=== PATIENT | female | born 1960 | race Hispanic/Latino ===

== ENCOUNTER 2019-05-31 13:20 | Inpatient (IN) | payer MEDICARE, OTHER ==
[2019-05-30] MEDS: NITROGLYCERIN/D5W 200 MCG/ML 250 ML IV PRN (22:42)
[2019-05-31] VITALS (21 sets, daily range): BP systolic 113–214; BP diastolic 75–127
[~2019-05-31] VITALS: Ht 157.5 cm; Wt 67.2 kg
--- OUTSIDE RECORDS SUMMARY | 2019-05-31 13:23 | XMS REPORT ---
[facility] Address Unknown Phone Unavailable Care Team Providers Care Sql Consultant Name Role Phone Favian FALK Unavailable Unavailable DERIC PERALTA Unavailable Unavailable Payers Payer Name Policy Type Policy Number Effective Date Expiration Date Problems This patient has no known problems. Allergies, Adverse Reactions, Alerts Allergy Name Allergy Type Status Severity Reaction(s) Onset Date Inactive Date Treating Clinician Comments No Known Allergies DA Active U 2018-06-30 00:00:00 No Known Allergies DA Active U 2018-05-16 00:00:00 No Known Allergies DA Active U 2011-11-16 00:00:00 Medications This patient has no known medications. Results Test Description Test Time Test Comments Text Results Atomic Results Result Comments FUNGUS CULTURE + SMEAR 2018-06-16 07:11:00 CULTURE (BEAKER) (test jwol=6648) No fungus isolated in 28 days FUNGUS SMEAR (BEAKER) (test vxhf=7524) No fungi seen MISCELLANEOUS LAB [id number] 12:55:00* Test Item Value Reference Range Comments SCAN RESULT (test weig=6021090) BLOOD [id number] 00:00:00* Test Item Value Reference Range Comments CULTURE (BEAKER) (test cryh=9066) No growth in 5 days BLOOD [id number] 18:00:00* Test Item Value Reference Range Comments CULTURE (BEAKER) (test cswx=0698) No growth in 5 days PERITONEAL DIALYSIS EFFLUENT [id number] 09:50:00* Test Item Value Reference Range Comments CULTURE (BEAKER) (test qsea=7788) No growth GRAM STAIN RESULT (BEAKER) (test wohm=5541) 4+ WBCs GRAM STAIN RESULT (BEAKER) (test vezw=60418) No organisms seen POCT-GLUCOSE [id number] 12:06:00* Test Item Value Reference Range Comments POC-GLUCOSE METER (BEAKER) (test pmja=2447) 200 mg/dL 70-[address] [facility] [address] [facility] [address] POCT-GLUCOSE [id number] 09:00:00* Test Item Value Reference Range Comments POC-GLUCOSE METER (BEAKER) (test qshy=7544) 177 mg/dL 70-110 TESTED AT [address] [address] BASIC METABOLIC [id number] 06:46:00* Test Item Value Reference Range Comments SODIUM (BEAKER) (test fbwo=248) 137 meq/L 136-145 POTASSIUM (BEAKER) (test jzkf=569) 3.2 meq/L 3.5-5.1 CHLORIDE (BEAKER) (test afvm=729) 103 meq/L 98-107 CO2 (BEAKER) (test acps=285) 25 meq/L 22-29 BLOOD UREA NITROGEN (BEAKER) (test fhmi=228) 33 mg/dL 7-21 CREATININE (BEAKER) (test lphk=645) 6.44 mg/dL 0.57-1.25 GLUCOSE RANDOM (BEAKER) (test sgfn=825) 188 mg/dL 70-105 CALCIUM (BEAKER) (test pwjy=997) 8.4 mg/dL 8.4-10.2 EGFR (BEAKER) (test pcou=9693) 7 mL/min/1.73 sq m ESTIMATED GFR IS NOT ACCURATE CREATININE CLEARANCE IN PREDICTING GLOMERULAR FILTRATION RATE. ESTIMATED GFR IS NOT APPLICABLE FOR DIALYSIS PATIENTS. CBC (HEMOGRAM ONLY)2018-05-20 06:08:00* Test Item Value Reference Range Comments WHITE BLOOD CELL COUNT (BEAKER) (test beoi=893) 6.7 K/ L 3.5-10.5 RED BLOOD CELL COUNT (BEAKER) (test lkck=529) 2.97 M/ L 3.93-5.22 HEMOGLOBIN (BEAKER) (test ufse=165) 8.8 GM/DL 11.2-15.7 HEMATOCRIT (BEAKER) (test rpoz=138) 26.7 % 34.1-44.9 MEAN CORPUSCULAR VOLUME (BEAKER) (test ufkv=556) 89.9 fL 79.4-94.8 MEAN CORPUSCULAR HEMOGLOBIN (BEAKER) (test jlvf=995) 29.6 pg 25.6-32.2 MEAN CORPUSCULAR HEMOGLOBIN CONC (BEAKER) (test bwls=347) 33.0 GM/DL 32.2-35.5 RED CELL DISTRIBUTION WIDTH (BEAKER) (test zbhf=094) 13.2 % 11.7-14.4 PLATELET COUNT (BEAKER) (test yokb=241) 206 K/CU MM 150-450 MEAN PLATELET VOLUME (BEAKER) (test fdng=396) 10.5 fL 9.4-12.3 NUCLEATED RED BLOOD CELLS (BEAKER) (test ixft=221) 0 /100 WBC 0-0 POCT-GLUCOSE [id number] 21:26:00* Test Item Value Reference Range Comments POC-GLUCOSE METER (BEAKER) (test rkvl=8661) 259 mg/dL 70-[address] [facility] [address] [facility] [address] BODY FLUID CELL COUNT WITH [id number] 20:14:00* Test Item Value Reference Range Comments APPEARANCE FLUID (BEAKER) (test waeb=629) Cloudy Clear COLOR FLUID (BEAKER) (test ynvn=761) Straw Colorless, Straw RBC FLUID (BEAKER) (test hmoq=629) 70 /cu mm <=1 ADJUSTED WBC FLUID (BEAKER) (test uwyp=0892) 5455 /cu mm <=5 LINING CELLS (BEAKER) (test arkg=1227) 55 /cu mm <=1 NEUTROPHILS FLUID (BEAKER) (test jyrl=4604) 73 % LYMPHS FLUID (BEAKER) (test ygdp=298) 9 % MONO/MACROPHAGE FLUID (BEAKER) (test ixjv=131) 13 % EOSINOPHILS FLUID (BEAKER) (test brti=795) 3 % BASO FLUID (BEAKER) (test yziu=719) 2 % CONTAINER BODY FLUID (BEAKER) (test fkhs=4621) EDTA Tube POCT-GLUCOSE [id number] 17:54:00* Test Item Value Reference Range Comments POC-GLUCOSE METER (BEAKER) (test xrha=3986) 140 mg/dL 70-[address] [facility] [address] [facility] [address] POCT-GLUCOSE [id number] 11:31:00* Test Item Value Reference Range Comments POC-GLUCOSE METER (WeatheristaAKER) (test agys=4879) 66 mg/dL 70-[address] [facility] [address] [facility] [address] PERITONEAL DIALYSIS EFFLUENT [id number] 10:19:00* Test Item Value Reference Range Comments CULTURE (WeatheristaAKER) (test vssi=9193) ACINETOBACTER BAUMANNII COMPLEX 4+ Acinetobacter baumannii complex Amikacin (test code=1) Susceptible 0-16 , Resistant <0 or >16 Ampicillin + Sulbactam (test code=6) Susceptible 0-8 , Resistant <0 or >8 Cefepime (test code=51) Susceptible 0-8 , Resistant <0 or >8 Ceftazidime (test code=27) Susceptible 0-8 , Resistant <0 or >8 Ceftriaxone (test code=52) Susceptible 0-8 , Resistant <0 or >8 Ciprofloxacin (test code=7) Susceptible 0-1 , Resistant <0 or >1 Gentamicin (test code=18) Susceptible 0-4 , Resistant <0 or >4 Levofloxacin (test code=22) Susceptible 0-2 , Resistant <0 or >2 Meropenem (test code=34) Susceptible 0-2 , Resistant <0 or >2 Minocycline (test code=35) Susceptible 0-4 , Resistant <0 or >4 Piperacillin (test code=24) Susceptible 0-16 , Resistant <0 or >16 Piperacillin + Tazobactam (test code=29) Susceptible 0-16 , Resistant <0 or >16 Tetracycline (test code=2) Susceptible 0-4 , Resistant <0 or >4 Ticarcillin + Clavulanic Acid (test code=80) Susceptible 0-16 , Resistant <0 or >16 Tobramycin (test code=25) Susceptible 0-4 , Resistant <0 or >4 Trimethoprim + Sulfamethoxazole (test code=47) Susceptible 0-40 , Resistant <0 or >40 GRAM STAIN RESULT (WeatheristaAKER) (test kvxa=7413) 4+ WBCs GRAM STAIN RESULT (WeatheristaAKER) (test ztsn=443547) No organisms seen POCT-GLUCOSE [id number] 08:13:00* Test Item Value Reference Range Comments POC-GLUCOSE METER (BEAKER) (test rstp=2102) 180 mg/dL 70-[address] [facility] [address] [facility] [address] BASIC METABOLIC [id number] 06:14:00* Test Item Value Reference Range Comments SODIUM (BEAKER) (test hphf=796) 134 meq/L 136-145 POTASSIUM (BEAKER) (test uqfo=982) 3.1 meq/L 3.5-5.1 CHLORIDE (BEAKER) (test qfvv=284) 100 meq/L 98-107 CO2 (BEAKER) (test wwcg=028) 24 meq/L 22-29 BLOOD UREA NITROGEN (BEAKER) (test pcqk=679) 42 mg/dL 7-21 CREATININE (BEAKER) (test iynv=151) 7.38 mg/dL 0.57-1.25 GLUCOSE RANDOM (BEAKER) (test bpnq=600) 224 mg/dL 70-105 CALCIUM (BEAKER) (test ttle=945) 8.7 mg/dL 8.4-10.2 EGFR (BEAKER) (test rsyc=3854) 6 mL/min/1.73 sq m ESTIMATED GFR IS NOT ACCURATE CREATININE CLEARANCE IN PREDICTING GLOMERULAR FILTRATION RATE. ESTIMATED GFR IS NOT APPLICABLE FOR DIALYSIS PATIENTS. CBC (HEMOGRAM ONLY)2018-05-19 05:51:00* Test Item Value Reference Range Comments WHITE BLOOD CELL COUNT (BEAKER) (test eabg=061) 10.4 K/ L 3.5-10.5 RED BLOOD CELL COUNT (BEAKER) (test wdfw=382) 3.00 M/ L 3.93-5.22 HEMOGLOBIN (BEAKER) (test oxvz=577) 9.0 GM/DL 11.2-15.7 HEMATOCRIT (BEAKER) (test xjkv=338) 27.0 % 34.1-44.9 MEAN CORPUSCULAR VOLUME (BEAKER) (test hhkj=580) 90.0 fL 79.4-94.8 MEAN CORPUSCULAR HEMOGLOBIN (BEAKER) (test unbk=764) 30.0 pg 25.6-32.2 MEAN CORPUSCULAR HEMOGLOBIN CONC (BEAKER) (test jxok=429) 33.3 GM/DL 32.2-35.5 RED CELL DISTRIBUTION WIDTH (BEAKER) (test acim=782) 13.2 % 11.7-14.4 PLATELET COUNT (BEAKER) (test xpqt=413) 192 K/CU MM 150-450 MEAN PLATELET VOLUME (BEAKER) (test ptqr=604) 11.2 fL 9.4-12.3 NUCLEATED RED BLOOD CELLS (BEAKER) (test xolo=771) 0 /100 WBC 0-0 BODY FLUID CELL COUNT WITH [id number] 21:31:00* Test Item Value Reference Range Comments APPEARANCE FLUID (BEAKER) (test gmgr=275) Cloudy Clear COLOR FLUID (BEAKER) (test mrfm=383) Yellow Colorless, Straw RBC FLUID (BEAKER) (test yeep=242) 123 /cu mm <=1 ADJUSTED WBC FLUID (BEAKER) (test mvzz=8648) [address] /cu mm <=5 LINING CELLS (BEAKER) (test iius=8899) 0 /cu mm <=1 NEUTROPHILS FLUID (BEAKER) (test bigy=7730) 80 % LYMPHS FLUID (BEAKER) (test zyen=614) 4 % MONO/MACROPHAGE FLUID (BEAKER) (test oiei=505) 14 % EOSINOPHILS FLUID (BEAKER) (test uhvh=682) 1 % BASO FLUID (BEAKER) (test ouid=182) 1 % CONTAINER BODY FLUID (BEAKER) (test wtcq=1044) EDTA Tube POCT-GLUCOSE [id number] 17:54:00* Test Item Value Reference Range Comments POC-GLUCOSE METER (BEAKER) (test evlc=0330) 116 mg/dL 70-110 TESTED AT [address] [address] POCT-GLUCOSE [id number] 12:00:00* Test Item Value Reference Range Comments POC-GLUCOSE METER (BEAKER) (test vihg=9078) 109 mg/dL 70-110 TESTED AT [address] [address] POCT-GLUCOSE [id number] 08:10:00* Test Item Value Reference Range Comments POC-GLUCOSE METER (BEAKER) (test bwzm=8742) 124 mg/dL 70-110 TESTED AT [address] [address] BASIC METABOLIC [id number] 06:00:00* Test Item Value Reference Range Comments SODIUM (BEAKER) (test hcpx=318) 134 meq/L 136-145 POTASSIUM (BEAKER) (test ibwe=960) 3.2 meq/L 3.5-5.1 CHLORIDE (BEAKER) (test rmdd=661) 99 meq/L 98-107 CO2 (BEAKER) (test zpaz=167) 25 meq/L 22-29 BLOOD UREA NITROGEN (BEAKER) (test ndvf=445) 51 mg/dL 7-21 CREATININE (BEAKER) (test nrhq=016) 8.66 mg/dL 0.57-1.25 GLUCOSE RANDOM (BEAKER) (test ighb=291) 140 mg/dL 70-105 CALCIUM (BEAKER) (test hlex=955) 8.7 mg/dL 8.4-10.2 EGFR (BEAKER) (test aqbj=5783) 5 mL/min/1.73 sq m ESTIMATED GFR IS NOT ACCURATE CREATININE CLEARANCE IN PREDICTING GLOMERULAR FILTRATION RATE. ESTIMATED GFR IS NOT APPLICABLE FOR DIALYSIS PATIENTS. VANCOMYCIN LEVEL, [id number] 05:57:00* Test Item Value Reference Range Comments VANCOMYCIN RANDOM (BEAKER) (test mqgh=331) 39.9 ug/mL Reference Range: No NormalsCBC (HEMOGRAM ONLY)2018-05-18 05:34:00* Test Item Value Reference Range Comments WHITE BLOOD CELL COUNT (BEAKER) (test xjih=037) 14.6 K/ L 3.5-10.5 RED BLOOD CELL COUNT (BEAKER) (test qkiw=568) 3.10 M/ L 3.93-5.22 HEMOGLOBIN (BEAKER) (test owrl=817) 9.3 GM/DL 11.2-15.7 HEMATOCRIT (BEAKER) (test vehg=180) 27.9 % 34.1-44.9 MEAN CORPUSCULAR VOLUME (BEAKER) (test ioel=635) 90.0 fL 79.4-94.8 MEAN CORPUSCULAR HEMOGLOBIN (BEAKER) (test chmy=069) 30.0 pg 25.6-32.2 MEAN CORPUSCULAR HEMOGLOBIN CONC (BEAKER) (test ezyr=430) 33.3 GM/DL 32.2-35.5 RED CELL DISTRIBUTION WIDTH (BEAKER) (test yizh=162) 13.3 % 11.7-14.4 PLATELET COUNT (BEAKER) (test xuwn=965) 150 K/CU MM 150-450 MEAN PLATELET VOLUME (BEAKER) (test hnmr=219) 11.2 fL 9.4-12.3 NUCLEATED RED BLOOD CELLS (BEAKER) (test pbla=102) 0 /100 WBC 0-0 POCT-GLUCOSE [id number] 21:25:00* Test Item Value Reference Range Comments POC-GLUCOSE METER (BEAKER) (test rxps=6834) 228 mg/dL 70-110 TESTED AT [address] [address] POCT-GLUCOSE [id number] 17:09:00* Test Item Value Reference Range Comments POC-GLUCOSE METER (BEAKER) (test qawl=3243) 99 mg/dL 70-110 TESTED AT [address] [address] POCT-GLUCOSE [id number] 11:55:00* Test Item Value Reference Range Comments POC-GLUCOSE METER (BEAKER) (test ulds=7274) 92 mg/dL 70-110 TESTED AT [address] [address] HEMOGLOBIN [id number] 11:09:00* Test Item Value Reference Range Comments HEMOGLOBIN A1C (BEAKER) (test cvyc=562) 6.0 % 4.3-6.1 POCT-GLUCOSE [id number] 09:09:00* Test Item Value Reference Range Comments POC-GLUCOSE METER (BEAKER) (test rzkq=8927) 87 mg/dL 70-110 TESTED AT [address] [address] POCT-GLUCOSE [id number] 07:39:00* Test Item Value Reference Range Comments POC-GLUCOSE METER (BEAKER) (test isqu=3297) 64 mg/dL 70-110 Notified HELGA LEBRON/TESTED AT [address] [address] BASIC METABOLIC [id number] 06:41:00* Test Item Value Reference Range Comments SODIUM (BEAKER) (test xtmq=626) 133 meq/L 136-145 POTASSIUM (BEAKER) (test mfxx=121) 3.9 meq/L 3.5-5.1 CHLORIDE (BEAKER) (test xcej=302) 102 meq/L 98-107 CO2 (BEAKER) (test woig=740) 19 meq/L 22-29 BLOOD UREA NITROGEN (BEAKER) (test bztj=419) 60 mg/dL 7-21 CREATININE (BEAKER) (test fdhk=221) 10.48 mg/dL 0.57-1.25 GLUCOSE RANDOM (BEAKER) (test cuhk=387) 68 mg/dL 70-105 CALCIUM (BEAKER) (test qzcy=491) 7.7 mg/dL 8.4-10.2 EGFR (BEAKER) (test aelc=1386) 4 mL/min/1.73 sq m ESTIMATED GFR IS NOT ACCURATE CREATININE CLEARANCE IN PREDICTING GLOMERULAR FILTRATION RATE. ESTIMATED GFR IS NOT APPLICABLE FOR DIALYSIS PATIENTS. VANCOMYCIN LEVEL, [id number] 06:32:00* Test Item Value Reference Range Comments VANCOMYCIN RANDOM (BEAKER) (test tyvn=014) 12.3 ug/mL Reference Range: No NormalsPOCT-GLUCOSE [id number] 00:58:00* Test Item Value Reference Range Comments POC-GLUCOSE METER (BEAKER) (test pxus=9720) 85 mg/dL 70-110 TESTED AT [address] [address] POCT-GLUCOSE [id number] 00:19:00* Test Item Value Reference Range Comments POC-GLUCOSE METER (BEAKER) (test qvcc=5567) 64 mg/dL 70-110 Notified HELGA LEBRON/TESTED AT [address] [address] BODY FLUID CELL COUNT WITH [id number] 21:12:00* Test Item Value Reference Range Comments APPEARANCE FLUID (BEAKER) (test mrfh=080) Cloudy Clear COLOR FLUID (BEAKER) (test jpba=888) Straw Colorless, Straw RBC FLUID (BEAKER) (test izji=605) 130 /cu mm <=1 ADJUSTED WBC FLUID (BEAKER) (test shlq=1646) 7518 /cu mm <=5 LINING CELLS (BEAKER) (test khxi=1396) 0 /cu mm <=1 NEUTROPHILS FLUID (BEAKER) (test sgbq=5299) 86 % LYMPHS FLUID (BEAKER) (test nlxu=911) 5 % MONO/MACROPHAGE FLUID (BEAKER) (test awgj=258) 9 % EOSINOPHILS FLUID (BEAKER) (test fyag=532) 0 % BASO FLUID (BEAKER) (test gwiz=990) 0 % CONTAINER BODY FLUID (BEAKER) (test zxkh=6077) EDTA Tube BODY FLUID CELL COUNT WITH [id number] 17:46:00* Test Item Value Reference Range Comments APPEARANCE FLUID (BEAKER) (test zcwr=417) Cloudy Clear COLOR FLUID (BEAKER) (test peli=847) Colorless Colorless, Straw RBC FLUID (BEAKER) (test dkxb=623) 100 /cu mm <=1 ADJUSTED WBC FLUID (BEAKER) (test lbmd=5038) [address] /cu mm <=5 LINING CELLS (BEAKER) (test jbuq=8228) 0 /cu mm <=1 NEUTROPHILS FLUID (BEAKER) (test uysf=3049) 90 % LYMPHS FLUID (BEAKER) (test bgur=879) 1 % MONO/MACROPHAGE FLUID (BEAKER) (test gajy=418) 9 % EOSINOPHILS FLUID (BEAKER) (test soyw=249) 0 % BASO FLUID (BEAKER) (test otmn=702) 0 % CONTAINER BODY FLUID (BEAKER) (test bfxm=1637) EDTA Tube AMYLASE, BODY [id number] 16:36:00* Test Item Value Reference Range Comments AMYLASE FLUID (BEAKER) (test jvyy=570) 5 U/L Absence of reference range indicates that normals have not been defined.Assay pe rformance has not been validated for this type of specimen.BASIC METABOLIC PANEL 2018-05-16 15:47:00* Test Item Value Reference Range Comments SODIUM (BEAKER) (test hfxn=086) 132 meq/L 136-145 POTASSIUM (BEAKER) (test yoxe=148) 3.7 meq/L 3.5-5.1 CHLORIDE (BEAKER) (test zdbk=719) 99 meq/L 98-107 CO2 (BEAKER) (test kzcy=982) 20 meq/L 22-29 BLOOD UREA NITROGEN (BEAKER) (test cwrj=231) 55 mg/dL 7-21 CREATININE (BEAKER) (test vlhe=081) 10.28 mg/dL 0.57-1.25 GLUCOSE RANDOM (BEAKER) (test gams=065) 70 mg/dL 70-105 CALCIUM (BEAKER) (test tgeq=955) 8.1 mg/dL 8.4-10.2 EGFR (BEAKER) (test ajiz=6399) 4 mL/min/1.73 sq m ESTIMATED GFR IS NOT ACCURATE CREATININE CLEARANCE IN PREDICTING GLOMERULAR FILTRATION RATE. ESTIMATED GFR IS NOT APPLICABLE FOR DIALYSIS PATIENTS. PROTHROMBIN [id number] 15:45:00* Test Item Value Reference Range Comments PROTIME (BEAKER) (test rmhn=717) 16.1 seconds 11.7-14.7 INR (BEAKER) (test sois=821) 1.3 <=5.9 RECOMMENDED COUMADIN/WARFARIN INR THERAPY RANGESSTANDARD DOSE: 2.0 - 3.0 Inclu ammy: PROPHYLAXIS for venous thrombosis, systemic embolization; TREATMENT for grey ous thrombosis and/or pulmonary embolus.HIGH RISK: Target INR is 2.5-3.5 for pat ients with mechanical heart valves.CBC W/PLT COUNT & AUTO [id number] 15:40:00* Test Item Value Reference Range Comments WHITE BLOOD CELL COUNT (BEAKER) (test dkpq=093) 16.4 K/ L 3.5-10.5 RED BLOOD CELL COUNT (BEAKER) (test adur=756) 3.75 M/ L 3.93-5.22 HEMOGLOBIN (BEAKER) (test zuhp=600) 11.3 GM/DL 11.2-15.7 HEMATOCRIT (BEAKER) (test azeu=241) 33.5 % 34.1-44.9 MEAN CORPUSCULAR VOLUME (BEAKER) (test wkkd=564) 89.3 fL 79.4-94.8 MEAN CORPUSCULAR HEMOGLOBIN (BEAKER) (test yvkx=516) 30.1 pg 25.6-32.2 MEAN CORPUSCULAR HEMOGLOBIN CONC (BEAKER) (test zvcm=905) 33.7 GM/DL 32.2-35.5 RED CELL DISTRIBUTION WIDTH (BEAKER) (test bmlm=358) 13.2 % 11.7-14.4 PLATELET COUNT (BEAKER) (test jmoz=744) 184 K/CU MM 150-450 MEAN PLATELET VOLUME (BEAKER) (test hnqp=497) 10.9 fL 9.4-12.3 NUCLEATED RED BLOOD CELLS (BEAKER) (test zkid=089) 0 /100 WBC 0-0 NEUTROPHILS RELATIVE PERCENT (BEAKER) (test pqwg=590) 91 % LYMPHOCYTES RELATIVE PERCENT (BEAKER) (test aecr=854) 7 % MONOCYTES RELATIVE PERCENT (BEAKER) (test dckp=010) 1 % EOSINOPHILS RELATIVE PERCENT (BEAKER) (test nsqy=229) 0 % BASOPHILS RELATIVE PERCENT (BEAKER) (test sues=776) 0 % NEUTROPHILS ABSOLUTE COUNT (BEAKER) (test eqbc=098) 14.91 K/ L 1.56-6.13 LYMPHOCYTES ABSOLUTE COUNT (BEAKER) (test xllo=525) 1.17 K/ L 1.18-3.74 MONOCYTES ABSOLUTE COUNT (BEAKER) (test mbir=936) 0.18 K/ L 0.24-0.36 EOSINOPHILS ABSOLUTE COUNT (BEAKER) (test dhwm=985) 0.02 K/ L 0.04-0.36 BASOPHILS ABSOLUTE COUNT (BEAKER) (test ighd=319) 0.02 K/ L 0.01-0.08 IMMATURE GRANULOCYTES-RELATIVE PERCENT (BEAKER) (test qbkn=1240) 0 % 0-1 [id number] 06:56:00* Test Item Value Reference Range Comments POC-SODIUM (BEAKER) (test sxzu=5177) 139 meq/L 135-148 TESTED AT [place] [address] [id number] 06:56:00* Test Item Value Reference Range Comments POC-POTASSIUM (BEAKER) (test wjrw=6411) 3.9 meq/L 3.6-5.5 TESTED AT [place] [address] [id number] 06:56:00* Test Item Value Reference Range Comments POC-BUN (BEAKER) (test qrwk=9907) 52 mg/dL 7-21 TESTED AT [place] [address] [id number] 06:56:00* Test Item Value Reference Range Comments POC-CHLORIDE (BEAKER) (test jkza=3603) 105 meq/L 98-107 TESTED AT [place] [id number] 06:56:00* Test Item Value Reference Range Comments POC-GLUCOSE (BEAKER) (test jpzi=1700) 122 mg/dL 70-110 TESTED AT [place] [address] [id number] 06:56:00* Test Item Value Reference Range Comments POC-HEMATOCRIT (BEAKER) (test byyj=8744) 30 % 36-45 TESTED AT [place] [address] [id number] 06:56:00* Test Item Value Reference Range Comments POC-HEMOGLOBIN (BEAKER) (test ieeb=6131) 10.2 g/dL 12.0-15.0 TESTED AT [place] [address] [id number] 07:05:00* Test Item Value Reference Range Comments POC-SODIUM (BEAKER) (test uhgh=1714) 139 meq/L 135-148 TESTED AT [place] [address] [id number] 07:05:00* Test Item Value Reference Range Comments POC-POTASSIUM (BEAKER) (test dtkx=9331) 4.3 meq/L 3.6-5.5 TESTED AT [place] [address] [id number] 07:05:00* Test Item Value Reference Range Comments POC-BUN (BEAKER) (test tzaw=4925) 55 mg/dL 7-21 TESTED AT [place] [address] [id number] 07:05:00* Test Item Value Reference Range Comments POC-CHLORIDE (BEAKER) (test oxzu=6654) 103 meq/L 98-107 TESTED AT [place] [address] [id number] 07:05:00* Test Item Value Reference Range Comments POC-GLUCOSE (BEAKER) (test yktq=1076) 124 mg/dL 70-110 TESTED AT [place] [address] [id number] 07:05:00* Test Item Value Reference Range Comments POC-HEMATOCRIT (BEAKER) (test otwf=2141) 36 % 36-45 TESTED AT [place] [address] [id number] 07:05:00* Test Item Value Reference Range Comments POC-HEMOGLOBIN (BEAKER) (test lydp=3840) 12.2 g/dL 12.0-15.[address] [facility] [place] [address] [facility] [id number]
[2019-05-31] MEDS ORDERED: HYDRALAZINE HCL 20 MG/ML VIAL IV ONE ×2 (13:45→14:30)
[2019-05-31] MEDS ORDERED: FUROSEMIDE INJ 10 MG/ML 4 ML VIAL IV NR (14:30)
[2019-05-31] MEDS ORDERED: FUROSEMIDE INJ 10 MG/ML 4 ML VIAL ONE (14:34)
[2019-05-31] MEDS ORDERED: NITROGLYCERIN 2% OINT 1 GM PKT ONE (14:35)
[2019-05-31] MEDS ORDERED: ASPIRIN 81 MG CHEW TAB PO ONE (14:45)
[2019-05-31] MEDS ORDERED: ONDANSETRON HCL INJ 2MG/ML 2ML 2 MG/ML VIAL IV PRN ×2 (14:45→15:45)
[2019-05-31] MEDS ORDERED: SODIUM CHLORIDE FLUSH 10 ML SYR INJ PRN (14:45)
[2019-05-31] MEDS ORDERED: HYDRALAZINE HCL 20 MG/ML VIAL IV PRN (14:45)
[2019-05-31] MEDS ORDERED: MORPHINE SULFATE 2 MG/ML SYR 1ML IV PRN (14:45)
--- NOTE | 2019-05-31 14:46 | Diagnostic Imaging Report ---
Frontal and lateral views of the chest. HISTORY: Shortness of breath COMPARISON: None available. DISCUSSION: Soft tissue attenuation partially limits sensitivity of the exam. Overlying artifacts. Lungs and pleura: Low lung volumes result in bibasilar vascular crowding, accentuation of the pulmonary interstitial markings, central pulmonary vasculature, and the cardiac silhouette. Allowing for these limitations, the findings are as follows: Small left greater than right pleural effusions with adjacent atelectasis. Diffusely increased pulmonary tissue markings. Heart and mediastinum: The cardiac silhouette and central pulmonary vasculature appear(s) enlarged. Bones and soft tissues: Appear unremarkable. IMPRESSION: Findings compatible with volume overload resulting in central pulmonary vascular congestion, interstitial edema, left greater than right pleural effusions, and adjacent atelectasis. Signed by: Dr. Ethan Giang D.O., M.M.M. on 05/31/2019 2:43 PM
[2019-05-31] MEDS ORDERED: ONDANSETRON HCL INJ 2MG/ML 2ML 2 MG/ML VIAL IV STA (15:38)
[2019-05-31] MEDS ORDERED: ACETAMINOPHEN 325 MG TAB PO PRN (16:00)
[2019-05-31] MEDS ORDERED: DOCUSATE SODIUM 100 MG CAP PO PRN (16:00)
[2019-05-31] MEDS ORDERED: MORPHINE SULFATE INJ 4 MG/ML INJ 1ML IV PRN (16:00)
[2019-05-31] MEDS ORDERED: CEFTRIAXONE SOD 1 GM/NS 50 ML 50 ML IV ONE ×2 (16:00→16:23)
[2019-05-31] MEDS ORDERED: ONDANSETRON HCL INJ 2MG/ML 2ML 2 MG/ML VIAL ONE (16:22)
[2019-05-31] MEDS ORDERED: NITROGLYCERIN/D5W 200 MCG/ML 250 ML ONE (16:23)
[2019-05-31] MEDS: FUROSEMIDE INJ 10 MG/ML 4 ML VIAL IV SCH ×2 (16:43→23:00)
[2019-05-31] MEDS: NITROGLYCERIN/D5W 200 MCG/ML 250 ML IV PRN ×5 (16:45→21:45)
--- NOTE | 2019-05-31 17:27 | NUR ---
Called [facility] for transport to room 194
--- NOTE | 2019-05-31 17:29 | NUR ---
room 196, report called to HELGA Haddad
--- NOTE | 2019-05-31 17:52 | History and Physical ---
PRESENTING COMPLAINT: Substernal chest pain for last two days, got worsened today along with shortness of breath. HISTORY OF PRESENT ILLNESS: A 58-year-old female was admitted from free-standing ER at [facility] at [place]. She was brought to the ER by her son from home. The patient speaks Palestinian. Her son is at bedside and interpreted Romanian. She also understands little bit Romanian. The patent tells that she started feeling shortness of breath. It localized substernal chest pain since yesterday morning. The pain was compressive in nature, off and on. The patient initially avoided seeking any medical attention, but this pain got worsened this morning, along with shortness of breath. She has also dry cough along with this chest pain. The patient denies any palpitation, perspiration, nausea, or vomiting. She denied having a similar episode in the past. She was followed up by her regular process developer, Dr. Donta Hawkins at [facility], [facility]. She gets daily peritoneal dialysis at home for about 3 years. She was initially on hemodialysis for 6 months and more than three and half years ago as per the patient's statement. The patient follows up with the PCP, Dr. Cuco Haynes for more than 6 months as per her statement. She had a cardiac evaluation at his office was negative as per patient's statement. The patient is afebrile now. Chest pain is slightly better. She was found having a very high blood pressure at presentation 260/123 as per the report from the ER, her blood pressure now is 206/88 at a monitor at bedside. The patient denies any other complaints now. She denied any numbness, weakness, difficulty in speech, swallowing, or change in mental status or seizure at home. Peritonitis and sepsis last year when she was admitted at [facility] as per the patient's statement. REVIEW OF SYSTEMS: CONSTITUTIONAL: No fever, chills, or rigor. EYE AND ENT: No nasal congestion. No sore throat. No earache. CARDIOVASCULAR: Has substernal chest pain as per HPI. No palpitation. PULMONARY: Irritant cough. No hemoptysis. Shortness of breath as per HPI. GI: No abdominal pain, nausea, vomiting. No bloody stool or black stool. : No dysuria. No hematuria. MUSCULOSKELETAL/SKIN/LYMPHORETICULAR: No joint pain. No joint swelling. No skin rash. No swollen glands. NEUROLOGICAL: No loss of consciousness. Seizure, headache. PAST MEDICAL HISTORY: Illness. 1. Hypertension. 2. ESRD on peritoneal dialysis for more than three and half years. 3. Hyperlipidemia. 4. No history of CAD. 5. Type 2 diabetes mellitus, on diet control now. 6. No history of CAD, acute [place] or stroke or cancer in the past. PAST SURGICAL HISTORY: The patient had a device placed for peritoneal dialysis on her abdominal wall. No other history of surgery. ALLERGIES: NO KNOWN MEDICATION ALLERGIES. HOME MEDICATION: List includes lisinopril 20 mg daily, nifedipine ER 90 mg daily, hydralazine 100 mg p.o. q.8 hours, carvedilol 25 mg p.o. q.12 hours, atorvastatin 40 mg daily, and calcitriol 0.25 mcg daily. SOCIAL HISTORY: Patient lives at home with her with son. She has 6 adult offsprings, normal delivery. She was working prior to her diagnosis of ESRD. She is now not working. HABITS: Denies smoking, drinking, or substance abuse history. FAMILY HISTORY: Father of an acute [place]. He had CAD. Mother of pneumonia. She was on hemodialysis as per patient's statement. Siblings, all alive and healthy. PHYSICAL EXAMINATION: VITAL SIGNS: Today at presentation, BP 274/139, pulse 104, temp 99, respiration 24, SpO2 95% on 2 L of oxygen. BP came to 106/88. GENERAL: Alert, in moderate distress due to chest pain. No fever . HEENT: NC/AT. No pallor. No icterus. NECK: No JVD. No carotid bruit HEART: S1, S2. Regular. No murmur. LUNGS: Air entry equal on both sides. Bilateral basilar crackles. No rhonchi. ABDOMEN: Soft, nontender. No palpable mass. Left flank peripheral dialysis catheter in place. No discharge. No infection noted. Bowel sounds active in all quadrants. No palpable mass. EXTREMITIES: No edema, cyanosis, or clubbing. NEUROLOGICAL: Motor grossly equal on both sides. Speech normal. LABORATORY DATA: Pending. Blood work/chest x-ray. Lung volumes and bibasilar vascular crowding with pulmonary interstitial markings. Central pulmonary vasculature and cardiac shadow, small left greater than right pleural effusion with adjacent atelectasis. Diffusely increased pulmonary vascular tissue marking. Cardiac shadow borderline enlarged. EKG, normal sinus rhythm as per ER physician's report. Tracing is not available now. No significant ST-T changes. ASSESSMENT AND PLAN: 1. Substernal chest pain , likely unstable angina . The patient is a definite risk factor for cad, though she did not have any history of coronary artery disease or acute myocardial infarction in the past. keep patient on cardiac monitoring. Cardiology consult is requested with Dr. Hussein. Continue the patient on nitroglycerin and beta-puneet, aspirin. 2. Rule out acute myocardial infarction by serial cardiac enzymes and troponin. 3. Pulmonary congestion due to congestive heart failure . The patient did not miss any peritoneal dialysis as per her statement she did yesterday. It is likely she has fluid overload. She can get IV Lasix for now and Nephrology consult will be requested to Dr. Sampson and her process developer, Dr. Hawkins, he is not available at this hospital. Would follow his recommendation. 4. Hypertensive urgency. Continue the patient on IV drip. Nitroglycerin was started by the ER physician. Continued the patient on regular medication. 5. Hyperlipidemia. Continue Lipitor at the same dose. 6. GI prophylaxis. Keep the patient on famotidine IV. 7. DVT prophylaxis. The patient on subcu heparin. ADVANCE DIRECTIVES: The patient is full code. PROGNOSIS: Guarded at this point in view of the patient's severe high blood pressure. DISCHARGE PLAN: We will discharge when cleared by the public weigher and process developer. Discussed the plan of care with the patient and her and her son at bedside. MD REECE Bhandari/[place]FRICA /[id number] KATIE
--- NOTE | 2019-05-31 18:28 | NUR ---
Pt nitro drip titrated to 75 mcg/min
--- NOTE | 2019-05-31 20:05 | NUR ---
Spoke with Dr. Hussein regarding consult. MD aware and updated on patient status. No new orders received.
[2019-05-31] MEDS: ATORVASTATIN 20 MG TAB PO SCH (20:20)
[2019-05-31] MEDS: FAMOTIDINE 20 MG/2 ML VIAL IV SCH (20:20)
[2019-05-31] MEDS: CARVEDILOL 12.5 MG TAB PO SCH (20:20)
--- NOTE | 2019-05-31 20:40 | NUR ---
Spoke with Dr. Sampson's answering service regarding consult at 2015. Awaiting return call.
[2019-05-31] MEDS: HYDRALAZINE HCL 25 MG TAB PO SCH (21:12)
[2019-05-31] MEDS: HEPARIN SOD (PORCINE) 5,000 UNIT/ML VIAL SC SCH (23:02)
[2019-05-31 23:31] LABS: CREATINE KINASE MB 4.8 ng/mL (0-5.0)
[2019-06-01] VITALS (46 sets, daily range): BP systolic 130–182; BP diastolic 61–122
[2019-06-01] MEDS ORDERED: PNEUMOCOCCAL VACCINE POLYVALENT 23 MCG/0.5 ML VIAL IM SCH (00:46)
[2019-06-01] MEDS ORDERED: INFLUENZA VIRUS VAC SPLIT INJ 0.5 ML SYR IM SCH (00:46)
[2019-06-01] MEDS: NITROGLYCERIN/D5W 200 MCG/ML 250 ML IV PRN ×4 (01:30→06:00)
[2019-06-01] MEDS ORDERED: HYDRALAZINE HCL25 MG PO (03:49)
[2019-06-01] MEDS ORDERED: PREDNISONE10 MG PO (03:49)
[2019-06-01] MEDS ORDERED: NIFEDIPINE ER30 M1 PO (03:49)
[2019-06-01] MEDS ORDERED: ATORVASTATIN CA40 MG PO (03:49)
[2019-06-01] MEDS: HYDRALAZINE HCL 25 MG TAB PO SCH ×3 (05:02→21:03)
[2019-06-01 05:08] LABS: BASOPHILS # (AUTO) 0.1 (0.0-0.1); BASOPHILS % 0.8 % (0.0-1.0); EOSINOPHILS # (AUTO) 0.4 (0.0-0.4); EOSINOPHILS % 4.2 % (0.0-6.0); HEMATOCRIT 24.8 % (34.2-44.1); LYMPHOCYTES # (AUTO) 1.9 (1.0-3.2); LYMPHOCYTES % 20.2 % (18.0-39.1); MEAN CORPUSCULAR HEMOGLOBIN 29.7 pg (28-32); MEAN CORPUSCULAR HGB CONC 32.3 g/dL (31-35); MEAN CORPUSCULAR VOLUME 92.2 fL (81-99); MONOCYTES # (AUTO) 0.5 (0.2-0.8); MONOCYTES % 5.7 % (4.4-11.3); NEUTROPHILS # (AUTO) 6.3 (2.1-6.9); NEUTROPHILS % 68.8 % (38.7-80.0); PLATELET COUNT 212 x10e3/uL (140-360); RED BLOOD COUNT 2.69 x10e6/uL (3.6-5.1); RED CELL DISTRIBUTION WIDTH 13.9 % (11.7-14.4)
[2019-06-01 05:23] LABS: INR 1.09; PROTHROMBIN TIME 14.6 seconds (11.9-14.5)
[2019-06-01 05:33] LABS: B-TYPE NATRIURETIC PEPTIDE2 1619.5 pg/mL (0-100)
[2019-06-01 05:39] LABS: ALBUMIN 2.1 g/dL (3.5-5.0); ALBUMIN/GLOBULIN RATIO 0.7 (0.8-2.0); ANION GAP 20.7 mmol/L (8-16); CALCIUM 8.3 mg/dL (8.4-10.2); CHOL/HDL RATIO 6.8 (3.0-3.6); CREATININE, SERUM 11.19 mg/dL (0.57-1.11); MAGNESIUM 1.6 MG/DL (1.3-2.1); PHOSPHORUS 9.9 MG/DL (2.3-4.7); POTASSIUM 4.7 mmol/L (3.5-5.1)
[2019-06-01 05:59] LABS: THYROID STIMULATING HORMONE 1.197 uIU/mL (0.350-4.940)
[2019-06-01] MEDS: ASPIRIN 325 MG TAB PO SCH (08:08)
[2019-06-01] MEDS: FAMOTIDINE 20 MG/2 ML VIAL IV SCH ×2 (08:08→16:14)
[2019-06-01] MEDS: FUROSEMIDE INJ 10 MG/ML 4 ML VIAL IV SCH (08:08)
[2019-06-01] MEDS: LISINOPRIL 20 MG TAB PO SCH (08:09)
[2019-06-01] MEDS: CARVEDILOL 12.5 MG TAB PO SCH ×2 (08:09→16:15)
[2019-06-01] MEDS: HEPARIN SOD (PORCINE) 5,000 UNIT/ML VIAL SC SCH ×2 (08:09→20:12)
[2019-06-01] MEDS: CALCITRIOL 0.25 MCG CAP PO SCH (08:09)
--- NOTE | 2019-06-01 11:15 | Diagnostic Imaging Report ---
EXAMINATION: CHEST SINGLE (PORTABLE) INDICATION: Shortness of breath COMPARISON: Chest radiograph of 05/31/2019 FINDINGS: LINES/TUBES:EKG leads overlie the chest. LUNGS:The lungs are moderately inflated. There is perihilar fullness and indistinctness of the pulmonary vasculature. PLEURA:No pleural effusion or pneumothorax. MEDIASTINUM:The cardiomediastinal silhouette appears unchanged in size and shape. Atherosclerotic calcifications of the thoracic aorta. BONES/SOFT TISSUES:No acute osseous injury. ABDOMEN:No free air under the diaphragm. IMPRESSION: Mild pulmonary interstitial edema. Signed by: Shun Robert MD on 06/01/2019 11:12 AM
--- NOTE | 2019-06-01 13:03 | Consultation ---
DATE OF CONSULTATION: 06/01/2019 Cardiology Consultation REASON FOR CONSULTATION: Chest pain, hypertensive emergency. HISTORY OF PRESENT ILLNESS: Ms. Sanchez is a 58-year-old lady with past medical history of hypertension, type 2 diabetes with end-organ damage, hypercholesterolemia, end-stage renal disease, on dialysis now for over almost 4 years. Initially began as hemodialysis and transferred over to peritoneal dialysis for the past 3 years. The patient reports at baseline, she does not have very well control of her blood pressure. She normally takes according to her 6 medications and doses have been increasing with her outpatient primary lamp wirer. She maintains compliance with her dialysis, which occurs once a day. The patient came in yesterday to this institution with relentless shortness of breath, difficulty breathing, smothered, feeling headache, chest pain, and discomfort. When she arrived, her blood pressure was noted to be elevated at 274/139, and was admitted with hypertensive emergency with BNP greater than 5000. Her cardiac biomarkers despite this exorbitant blood pressure was relatively flat with 3rd set at 0.082 here at this institution. Currently, her blood pressure has improved, it is now 160s/80s, currently on a nitroglycerin drip. She has been initiated on various different pharmacotherapies including Coreg, lisinopril, as well as hydralazine. She received 80 mg dose of IV Lasix, for which she also put out a moderate amount of urine. Currently, the patient is chest pain free. Does have a nonproductive cough. Still with two pillow orthopnea. No PND. Denies any chest pain, palpitations, syncope, or near syncope. PAST MEDICAL HISTORY: 1. Hypertension, essential. 2. Hypercholesterolemia. 3. Type 2 diabetes for the past 10 years. 4. End-stage renal disease, initially on hemodialysis for 6 months, now on peritoneal dialysis via Tenckhoff catheter for the past 3 years. PAST SURGICAL HISTORY: 1. History of previous right IJ PermCath. 2. History of Tenckhoff catheter placement. FAMILY HISTORY: Mother at 72 with complications of diabetes. Father at age of 79, had heart attack and was on dialysis. SOCIAL HISTORY: She is a long nonsmoker. Denies any alcohol or illicit drug use. ALLERGIES: NO KNOWN DRUG ALLERGIES. HOME MEDICATIONS: From what we have available is: 1. Atorvastatin 40 mg daily. 2. Hydralazine 100 mg t.i.d. 3. Nifedipine 90 mg daily. 4. Prednisone daily. REVIEW OF SYSTEMS: GENERAL: Positive for fatigue and malaise. Denies any fevers or chills. HEENT: Had headache, had some blurriness in vision, that has resolved. No sore throat or stuffy nose. RESPIRATORY: Positive for severe exertional dyspnea and dyspnea at rest upon presentation, has nonproductive cough. CARDIOVASCULAR: Chest pain, discomfort with elevation of blood pressure, now has resolve. Positive for 4 pillow orthopnea. No PND. No palpitations or syncope. GASTROINTESTINAL: Denies any abdominal pain. Positive for nausea. No vomiting. No bright red blood per rectum, melena, or hematemesis. GENITOURINARY: Positive for scant urine production at baseline, on peritoneal dialysis. MUSCULOSKELETAL: Reports trivial swelling in her legs. No leg pain, aches, or cramps. ENDOCRINE: Positive for diabetes. NEUROLOGIC: Positive for neuropathy. Sensation in her feet. No history of TIA or stroke or seizures. Positive for headache upon presentation, now resolved. Remainder of review of systems negative otherwise as mentioned. PHYSICAL EXAMINATION: VITAL SIGNS: Height of 62 inches, weight of 148 pounds, BMI is 27.1. Temperature of 98.0, pulse of 80, respiratory rate 19, blood pressure of 149/85, and O2 saturation 98% on 2 L nasal cannula. GENERAL: This is a well-nourished, well-developed lady, who is currently in no apparent distress. HEENT: Normocephalic, atraumatic. Pupils are equal, round, and reactive to light. Extraocular movements are intact. Oropharynx is clear. NECK: There is scarring over the right IJ from previous PermCath placement. Difficult to assess for JVD. No carotid bruits. CARDIOVASCULAR: Regular rate and rhythm. Normal S1, S2. Positive S4 gallop. Soft 2/6 systolic murmur at the apex. LUNGS: Show diminished bibasilar breath sounds and some slight crackles. No wheezing. ABDOMEN: Soft, protuberant. There is a left lower quadrant Tenckhoff catheter in place. No hepatosplenomegaly. BACK: No costovertebral angle tenderness. EXTREMITIES: Warm with trace edema. Diminished pedal pulses, and diminished bilateral radial pulses. NEUROLOGIC: Cranial nerves II through XII are intact. Strength is preserved and she appears nonfocal. PSYCHIATRIC: Normal fluent speech. Appropriate affect. No anxiety or delusions. LABORATORY DATA: White count of 9.2, hemoglobin 8.0, hematocrit 24.8, platelets of 212. Sodium 130, potassium 4.7, chloride 95, bicarb 19, BUN 70, creatinine of 11.2, glucose of 108. Hemoglobin A1c 5.6%. Lactate level improved from 8.4, down to 5.7, calcium 8.3, magnesium 1.6, phosphorus of 9.9, AST 10, ALT 9, alkaline phosphatase 78, total protein 5.3, albumin of 2.1. Total cholesterol is 267, HDL of 39, LDL of 195. TSH is 1.197. Normal CK-MB and troponin negative x3, last is 0.082. BNP has improved from greater than 5000 down to 1619 this a.m. INR is 1.09. Chest x-ray reveals central pulmonary vascular congestion, interstitial edema, left greater than right pleural effusions. EKG reveals LVH and secondary repolarization and hypertrophy changes. DIAGNOSES: 1. Hypertensive emergency. 2. End-stage renal disease, on peritoneal dialysis. Suspect may not be getting adequate volume removal at baseline. 3. Bszoc-zh-[id number] decompensated diastolic heart failure. 4. Hypercholesterolemia. 5. Type 2 diabetes with complications. 6. Anemia. PLAN/RECOMMENDATIONS: 1. From a cardiovascular standpoint, we will continue titrating antihypertensive regimen, however, I believe the west for her improvement is more volume optimization. 2. I appreciate Renal team aid in management in this lady. 3. We will follow up on echocardiogram to evaluate her left ventricular function. 4. She will need aggressive risk factor modification medical therapy. 5. Her LDL being very elevated at 195, suspect the patient is not taking her Lipitor and suspicious maybe there is a compliance issue. 6. We will continue to follow this patient with you. Thank you for this referral. MD MODESTA Pickard/MODL /[id number]
--- NOTE | 2019-06-01 15:38 | Diagnostic Imaging Report ---
PROCEDURE: Aborted Non-tunneled central venous catheter placement Procedural Personnel Attending physician(s): Shun Robret MD Fellow physician(s): None Resident physician(s): None Advanced practice provider(s): None Pre-procedure diagnosis: Acute kidney injury Post-procedure diagnosis: Same Indication: Performance of hemodialysis Additional clinical history: None IMPRESSION: Patient was scanned and physician, nurse, and technologist present prior to line placement when the procedure was cancelled by the referring provider. Attestation Signer name: Shun Robert MD I attest that I was present for the entire procedure. I reviewed the stored images and agree with the report as written. Signed by: Shun Robert MD on 06/01/2019 3:35 PM
[2019-06-01 15:42] LABS: % IRON SATURATION 44 % (15-50); IRON 64 ug/dL (50-170); TOTAL IRON BINDING CAPACITY 146 ug/dL (261-478); TRANSFERRIN 104 mg/dL (180-382)
[2019-06-01] MEDS: EPOETIN ALFA 10000 UNIT/ML VIAL SC SCH (16:14)
--- NOTE | 2019-06-01 16:54 | Consultation ---
DATE OF CONSULTATION: 06/01/2019 HISTORY OF PRESENT ILLNESS: This is a delightful 58-year-old female, underlying history of end-stage renal disease, type 2 diabetes, and hypertension, who came in with accelerated hypertension, which is blood pressure is now reasonably well controlled. She is currently lying supine. No orthopnea, PND, or shortness of breath. Blood cultures are pending. LABORATORY TEST: Shows potassium 4.7, creatinine 11.1 with a CK 256. BNP 1619. CBC shows white count 9.1 and hemoglobin 8. SOCIAL HISTORY: The patient does not smoke or drink. ALLERGIES: NO APPARENT DRUG ALLERGIES. CURRENT MEDICATIONS: She is on hydralazine 100 mg p.o. q.8, furosemide 40 mg IV q.12, which I am going to stop, calcitriol 0.25 mcg daily, carvedilol 25 mg b.i.d., aspirin 325 mg daily. She is on ceftriaxone 1 g q.24, ondansetron p.r.n., heparin subcutaneous 5000 units twice a day. PHYSICAL EXAMINATION: GENERAL: Awake, alert, and oriented x3. No apparent distress. VITAL SIGNS: Blood pressure of 150/74, pulse rate 77, and afebrile. HEAD AND NECK: Cornea clear. Oral mucosa moist. Neck veins flat. LUNGS: Relatively clear. Occasional rales at bases. HEART: S1 and S2 audible. ABDOMEN: Otherwise soft and nontender. No apparent visceromegaly. PD catheter in satisfactory state. Exit site no sign of infection. EXTREMITIES: Lower extremity, no edema. IMPRESSION AND PLAN: Congestive heart failure, accelerated hypertension, end-stage renal disease, anemia, multifactorial. I will obtain iron profile. Start erythropoietin. Arrange for peritoneal dialysis. We will use 4.25 alternating with 2.5%, 2 L fill with 6 exchanges. Start erythropoietin. Further recommendations to follow. MD CRISTY Cormier/[place] /[id number]
[2019-06-01] MEDS: ATORVASTATIN 20 MG TAB PO SCH (20:12)
[2019-06-02] VITALS (21 sets, daily range): BP systolic 133–181; BP diastolic 59–89
[2019-06-02] MEDS: NITROGLYCERIN/D5W 200 MCG/ML 250 ML IV PRN
[2019-06-02 04:57] LABS: BASOPHILS # (AUTO) 0.1 (0.0-0.1); BASOPHILS % 0.7 % (0.0-1.0); EOSINOPHILS # (AUTO) 0.8 (0.0-0.4); EOSINOPHILS % 8.3 % (0.0-6.0); HEMOGLOBIN 7.7 g/dL (12.0-16.0); LYMPHOCYTES # (AUTO) 1.4 (1.0-3.2); LYMPHOCYTES % 14.6 % (18.0-39.1); MEAN CORPUSCULAR HEMOGLOBIN 30.2 pg (28-32); MEAN CORPUSCULAR HGB CONC 33.5 g/dL (31-35); MEAN CORPUSCULAR VOLUME 90.2 fL (81-99); MONOCYTES # (AUTO) 0.6 (0.2-0.8); MONOCYTES % 6.2 % (4.4-11.3); NEUTROPHILS # (AUTO) 6.4 (2.1-6.9); NEUTROPHILS % 69.8 % (38.7-80.0); PLATELET COUNT 189 x10e3/uL (140-360); RED BLOOD COUNT 2.55 x10e6/uL (3.6-5.1); RED CELL DISTRIBUTION WIDTH 13.8 % (11.7-14.4)
[2019-06-02 05:26] LABS: ALBUMIN 2.1 g/dL (3.5-5.0); ALBUMIN/GLOBULIN RATIO 0.7 (0.8-2.0); ANION GAP 20.4 mmol/L (8-16); CALCIUM 7.9 mg/dL (8.4-10.2); CREATININE, SERUM 10.88 mg/dL (0.57-1.11); POTASSIUM 4.4 mmol/L (3.5-5.1)
[2019-06-02] MEDS: HYDRALAZINE HCL 25 MG TAB PO SCH ×2 (05:30→13:50)
[2019-06-02] MEDS: CALCITRIOL 0.25 MCG CAP PO SCH (08:26)
[2019-06-02] MEDS: HEPARIN SOD (PORCINE) 5,000 UNIT/ML VIAL SC SCH ×2 (08:26→21:27)
[2019-06-02] MEDS: CARVEDILOL 12.5 MG TAB PO SCH ×2 (08:26→16:34)
[2019-06-02] MEDS: FAMOTIDINE 20 MG/2 ML VIAL IV SCH ×2 (08:26→16:34)
[2019-06-02] MEDS: LISINOPRIL 20 MG TAB PO SCH (08:26)
[2019-06-02] MEDS: ASPIRIN 325 MG TAB PO SCH (08:26)
--- NOTE | 2019-06-02 14:15 | NUR ---
[facility] CALLED CONFIRMED NEED TO DIALYZE TONIGHT SPOKE TO RAAD
[2019-06-02] MEDS: NIFEDIPINE CR 30 MG TAB PO SCH ×2 (14:39→21:25)
[2019-06-02] MEDS: ATORVASTATIN 20 MG TAB PO SCH (21:25)
[2019-06-03] VITALS (10 sets, daily range): BP systolic 116–153; BP diastolic 55–70
[2019-06-03] MEDS: ASPIRIN 325 MG TAB PO SCH (08:25)
[2019-06-03] MEDS: LISINOPRIL 20 MG TAB PO SCH (08:25)
[2019-06-03] MEDS: CARVEDILOL 12.5 MG TAB PO SCH ×2 (08:25→17:36)
[2019-06-03] MEDS: FAMOTIDINE 20 MG/2 ML VIAL IV SCH ×2 (08:25→17:36)
[2019-06-03] MEDS: NIFEDIPINE CR 30 MG TAB PO SCH ×2 (08:26→20:51)
[2019-06-03] MEDS: CALCITRIOL 0.25 MCG CAP PO SCH (08:26)
[2019-06-03] MEDS: HEPARIN SOD (PORCINE) 5,000 UNIT/ML VIAL SC SCH ×2 (08:28→20:57)
--- NOTE | 2019-06-03 11:41 | NUR ---
PT IN ROOM. PT A&OX3. PT DENIES PAIN BUT C/O NAUSEA. BED IS IN LOW LOCKED POSITION AND BED ALARM IS ON. PT EDUCATED TO CALL NURSE WITH CALL LIGHT FOR ASSISTANCE UP TO BATHROOM.
[2019-06-03 14:04] LABS: BASOPHILS # (AUTO) 0.1 (0.0-0.1); BASOPHILS % 1.1 % (0.0-1.0); EOSINOPHILS # (AUTO) 0.6 (0.0-0.4); EOSINOPHILS % 8.3 % (0.0-6.0); HEMATOCRIT 25.6 % (34.2-44.1); HEMOGLOBIN 8.6 g/dL (12.0-16.0); LYMPHOCYTES # (AUTO) 1.5 (1.0-3.2); LYMPHOCYTES % 19.9 % (18.0-39.1); MEAN CORPUSCULAR HEMOGLOBIN 30.3 pg (28-32); MEAN CORPUSCULAR HGB CONC 33.6 g/dL (31-35); MEAN CORPUSCULAR VOLUME 90.1 fL (81-99); MONOCYTES # (AUTO) 0.5 (0.2-0.8); MONOCYTES % 6.8 % (4.4-11.3); NEUTROPHILS # (AUTO) 4.8 (2.1-6.9); NEUTROPHILS % 63.1 % (38.7-80.0); PLATELET COUNT 206 x10e3/uL (140-360); RED BLOOD COUNT 2.84 x10e6/uL (3.6-5.1); RED CELL DISTRIBUTION WIDTH 13.8 % (11.7-14.4)
[2019-06-03] MEDS: EPOETIN ALFA 10000 UNIT/ML VIAL SC SCH (15:34)
[2019-06-03] MEDS: ATORVASTATIN 20 MG TAB PO SCH (20:50)
[2019-06-04] VITALS (8 sets, daily range): BP systolic 118–154; BP diastolic 58–82
[2019-06-04] MEDS: FAMOTIDINE 20 MG/2 ML VIAL IV SCH ×2 (08:33→17:24)
[2019-06-04] MEDS: HEPARIN SOD (PORCINE) 5,000 UNIT/ML VIAL SC SCH ×2 (08:36→20:46)
[2019-06-04] MEDS ORDERED: REGADENOSON 0.4 MG/5 ML SYR IV ONE (09:03)
[2019-06-04] MEDS: ASPIRIN 325 MG TAB PO SCH (09:20)
[2019-06-04] MEDS: LISINOPRIL 20 MG TAB PO SCH (09:21)
[2019-06-04] MEDS: CARVEDILOL 12.5 MG TAB PO SCH ×2 (09:21→17:24)
[2019-06-04] MEDS: CALCITRIOL 0.25 MCG CAP PO SCH (09:22)
[2019-06-04] MEDS: NIFEDIPINE CR 30 MG TAB PO SCH ×2 (09:22→20:35)
--- NOTE | 2019-06-04 19:30 | NUR ---
Dialysis nurse started PD. Vital signs stable.
[2019-06-04] MEDS: ATORVASTATIN 20 MG TAB PO SCH (20:35)
[2019-06-05 00:20] VITALS: BP 131/63
--- NOTE | 2019-06-05 02:35 | NUR ---
Patient PD will be due at 0330am. Called plant protection officer number to follow up plant protection officer dialysis nurse. Waiting for response.
--- NOTE | 2019-06-05 03:50 | NUR ---
called [facility] corporate vp advertising & online social services counselor states emerson PARTIDA will be here at 8am to disconnect patient.
[2019-06-05 05:28] VITALS: BP 143/67
--- NOTE | 2019-06-05 08:07 | NUR ---
DIALYSIS NURSE INTO SEE PT, DISCONNECTED FROM PERITONEAL DIALYSIS, TOLERATED WELL, PER DIALYSIS NURSE, 967ML OFF
[2019-06-05 08:38] VITALS: BP 139/64
[2019-06-05 08:48] VITALS: BP 139/64
[2019-06-05] MEDS: LISINOPRIL 20 MG TAB PO SCH (09:45)
[2019-06-05] MEDS: ASPIRIN 325 MG TAB PO SCH (09:45)
[2019-06-05] MEDS: FAMOTIDINE 20 MG/2 ML VIAL IV SCH (09:45)
[2019-06-05] MEDS: CARVEDILOL 12.5 MG TAB PO SCH (09:45)
[2019-06-05] MEDS: HEPARIN SOD (PORCINE) 5,000 UNIT/ML VIAL SC SCH (09:45)
[2019-06-05] MEDS: CALCITRIOL 0.25 MCG CAP PO SCH (09:45)
[2019-06-05] MEDS: NIFEDIPINE CR 30 MG TAB PO SCH (09:45)
--- NOTE | 2019-06-05 09:55 | NUR ---
VIA TRANSLATION, PT TOOK AM MEDICATIONS, DENIES BM FOR 3 DAYS, COLACE GIVEN PER MD ORDER
--- NOTE | 2019-06-05 10:40 | NUR ---
MD Luan COSTELLO INTO SEE PT, DISCUSSED DISCHARGE INSTRUCTIONS WITH PT, PT VERBALIZED UNDERSTANDING
--- NOTE | 2019-06-05 10:50 | NUR ---
CHIDI ENTRY WRITER WITH MD HORAN INTO SEE PT, OKAY TO DISCHARGE FROM CUTTING MACHINE OPERATOR STANDPOINT
--- NOTE | 2019-06-05 11:05 | NUR ---
[facility] IMM EXPLAINED TO PT USING INTERPRETOR, SIGNED BY PT AND PLACED ON CHART COPY OF IMM GIVEN TO PT IN CARE TRANSITIONS FOLDER
--- NOTE | 2019-06-05 11:06 | NUR ---
TELEPHONED MD TAN TO MAKE AWARE THAT MD Luan COSTELLO HAS DC'D IF OKAY WITH CONSULTS, SPOKE WITH ESME
[2019-06-05] MEDS ORDERED: ONDANSETRON HCL 4 MG ORAL DISINTEGRATING TAB PO PRN (11:30)
[2019-06-05] MEDS ORDERED: NIFEDIPINE ER30 M1 PO (11:40)
[2019-06-05] MEDS ORDERED: COREG12.5 MG PO (11:41)
[2019-06-05] MEDS ORDERED: LIPITOR40 MG PO (11:41)
[2019-06-05] MEDS ORDERED: LISINOPRIL10 MG PO (11:41)
[2019-06-05 12:49] VITALS: BP 160/70
--- NOTE | 2019-06-05 19:55 | Discharge Summary ---
The patient is a 58-year-old woman, patient of mine, presented with a complaint of shortness of breath. ADMITTING IMPRESSION/DIAGNOSES: Decompensated congestive heart failure with volume overload with renal failure and unstable angina, hypertension, hypertensive urgency, and hyperlipidemia. HOSPITAL COURSE SUMMARY: The patient was admitted with the above diagnoses. The patient was in ICU. The patient was started on a nitroglycerin drip and Cardiology consultation was done, Dr. Hussein. The patient had a chest x-ray, echocardiogram was done and nuclear stress test was done, which was negative. Ultrasound-guided peritoneal dialysis access was done. The patient was aggressively dialyzed with peritoneal dialysis. An echocardiogram had shown LVH and normal ejection fraction. Now upon stabilization, the patient will be discharged home and the patient was advised to have a regular compliance with peritoneal dialysis and the medication. DISCHARGE DIAGNOSES: Decompensated congestive heart failure and unstable angina, end-stage renal disease on peritoneal dialysis, hypertension, and hyperlipidemia. The patient will be followed up as outpatient. The patient was discharged on lisinopril, Coreg, nifedipine, and Lipitor. MD NIR Shepard/MODL /[id number]
--- NOTE | 2019-06-10 19:57 | Myoview Stress Test ---
DATE OF STUDY: 06/03/2019 13:38:00 Stress Test - Treadmill ONLY INDICATION FOR STUDY: Chest pain and inability to exercise. TECHNICAL DETAILS: After risks, benefits, pros and cons of today's Lexiscan nuclear stress test was explained to the patient, the patient agreed to proceed. The patient was given an 11 mCi dose of technetium-99m tetrofosmin intravenously and after 40 minutes, the patient was then taken to the [facility] SPECT camera for resting myocardial perfusion imaging. Afterwards, she was taken to the stress lab for 12-lead EKG monitoring and blood pressure monitoring. She received a dose of Lexiscan 0.4 mg intravenously followed by 32.1 mCi dose of technetium-99m tetrofosmin intravenously. Resting heart rate ran from a baseline of 71 beats per minute to a maximum of 84 beats per minute. Blood pressure went from a baseline of 142/69 to 136/62, which is an appropriate hemodynamic response. Underlying EKG revealed normal sinus rhythm and nonspecific T-wave inversions in I, aVL, V5, V6 and with Lexiscan infusion there were no ischemic EKG changes or symptoms. After 25 minutes, the patient was then taken to the SPECT camera for stress myocardial perfusion imaging. FINDINGS: 1. Resting myocardial perfusion imaging reveals normal tracer uptake. 2. Stress myocardial perfusion imaging reveals normal tracer uptake. 3. The following gated measurements were obtained. End-diastolic volume 126 mm, end systolic volume 57 mm, calculated left ventricular ejection fraction is 55% with normal wall motion. CONCLUSIONS: 1. Normal myocardial perfusion imaging study revealing normal tracer uptake and no scintigraphic areas of ischemia. 2. Normal left ventricular function with calculated ejection fraction of 55%. 3. Overall findings of the stress test are compatible with a low risk stress test. MD MODESTA Pickard/[place] /[id number]
== END 2019-06-05 13:35 | disposition home or self-care (01) | DRG 291 ==
LOC: FSED 13:20 → ERHOLD 14:36 → ICU 19:09 → MED/SURG 06-03 11:26
PROVIDERS: ADMIT Internal Medicine; ATTEND Internal Medicine
PROC: 5A1D80Z Performance of Urinary Filtration, Prolonged Intermittent, 6-18 hours Per Day (ICD-10-PCS; principal; 2019-06-03)
PROC: 5A1D80Z Performance of Urinary Filtration, Prolonged Intermittent, 6-18 hours Per Day (ICD-10-PCS; 2019-06-03)
DX: I13.2 Hypertensive heart and chronic kidney disease with heart failure and with stage 5 chronic kidney disease, or end stage renal disease (principal); I50.33 Acute on chronic diastolic (congestive) heart failure; N18.6 End stage renal disease; I16.0 Hypertensive urgency; E78.00 Pure hypercholesterolemia, unspecified; D64.9 Anemia, unspecified; Z99.2 Dependence on renal dialysis; E11.22 Type 2 diabetes mellitus with diabetic chronic kidney disease; E11.40 Type 2 diabetes mellitus with diabetic neuropathy, unspecified; J44.9 Chronic obstructive pulmonary disease, unspecified; I20.0 Unstable angina
CPT/HCPCS: 36415; 71045; 71046; 74470; 76937; 78452; 80048; 80053; 80061; 80076; 82550; 82553; 82728; 82948; 83036; 83540; 83605; 83735; 83880; 84100; 84443; 84466; 84484; 85025; 85610; 85730; 87040; 93005; 93017; 93306; 96374; 96375; 97139; 99284; A9502; J0360; J0696; J1644; J1940; J2270; J2405; Q4081